=== PATIENT | male | born 1945 | race African-American/Black ===

== ENCOUNTER 2018-10-17 03:04 | Inpatient (IN) | payer MEDICARE, BC ==
[2018-10-17 03:52] LABS: % EOSINOPHILS 0.3 % (0.0-5.0); % LYMPHOCYTES 22.3 % (20.0-50.0); % MONOCYTES 3.5 % (2.0-10.0); % NEUTROPHILS 73.9 % (40.0-80.0); HEMATOCRIT 43.4 % (41.0-60); HEMOGLOBIN 13.2 gm/dL (12-16); LYMPHOCYTE ABSOLUTE 3.1 Th/cmm (1.5-3.0); MEAN CELL VOLUME 75.1 fl (80-99); MEAN CORPUSCULAR HEMOGLOBIN 22.9 pg (27.0-31.0); MEAN CORPUSCULAR HGB CONC 30.5 pg (28.0-36.0); MEAN PLATELET VOLUME 9.1 fl; MONOCYTE ABSOLUTE 0.5 Th/cmm (0.3-1.0); NEUTROPHILE ABSOLUTE 10.1 Th/cmm (1.8-8.0); PLATELET COUNT 309 Th/cmm (150-400); RED BLOOD COUNT 5.77 Mil/cmm (3.80-5.80); RED CELL DISTRIBUTION WIDTH 18.8 % (11.5-20.0); WHITE BLOOD COUNT 13.7 Th/cmm (4.8-10.8)
[2018-10-17 04:08] LABS: ALB/GLOB RATIO 1.2 (1.0-1.8); ALBUMIN 4.6 gm/dL (4.2-5.5); ALKALINE PHOSPHATASE 70 U/L (34-104); BILIRUBIN,TOTAL 0.6 mg/dL (0.3-1.0); BUN - UREA NITROGEN 38 mg/dL (7-25); CALCIUM SERUM 9.3 mg/dL (8.6-10.3); CARBON DIOXIDE 26.5 mEq/L (21.0-31.0); CHLORIDE 98 mEq/L (98-107); GLUCOSE 123 mg/dL (70-105); POTASSIUM SERUM 3.5 mEq/L (3.5-5.1); SGOT 20 U/L (13-39); SGPT/ALT 14 U/L (7-52); SODIUM SERUM 145 mEq/L (136-145); TOTAL PROTEIN,SERUM 8.6 gm/dL (6.0-8.3)
[2018-10-17 04:12] LABS: CREATININE - SERUM 10.6 mg/dL (0.7-1.3)
[2018-10-17] MEDS ORDERED: Piperacillin Sodium/Tazobact 3.375 gm Vial IV ONE (04:14)
[2018-10-17 04:34] LABS: URINE SOURCE RANDOM
[2018-10-17 04:36] LABS: URINE BILIRUBIN SMALL (NEGATIVE); URINE BLOOD MODERATE (NEGATIVE); URINE GLUCOSE (UA) NEGATIVE (NEGATIVE); URINE KETONE 15 mg/dL (NEGATIVE); URINE LEUKOCYTE ESTERASE MODERATE (NEGATIVE); URINE MICROSCOPIC INDICATED? YES; URINE NITRATE NEGATIVE (NEGATIVE); URINE PH 5.5 (4.6 - 8.0); URINE PROTEIN >=300 mg/dL (NEGATIVE); URINE UROBILINOGEN 0.2 E.U./dL (0.2 - 1.0)
[2018-10-17 04:55] LABS: URINE CLARITY HAZY (CLEAR); URINE COLOR ORANGE; URINE WBC 50-100 /hpf (0-5)
[2018-10-17 04:56] LABS: URINE BACTERIA MODERATE /hpf (NONE SEEN); URINE EPITHELIAL CELLS FEW /lpf (FEW)
--- NOTE | 2018-10-17 05:44 | ED Physician Chart ---
ED Chief Complaint/HPI - Patient Information Date Seen:: 10/17/18 Time Seen:: 03:38 Chief Complaint:: Abnormal labs History of Present Illness:: 73 yo male with history of ESRD on HD (/) had cough productive and was treated with rocephin IM and azithromycin PO for 5 days. Pt was noted to have elevated WBC 11.4 and unwitnessed fall and vomited yesterday. CXR was negative. Pt was brought to ER for evaluation. On arrival, pt was A&O x1, not answering question. Allergies:: Allergies Allergy/AdvReac Type Severity Reaction Status Date / Time losartan [From Cozaar] Allergy Verified 10/17/18 03:14 NSAIDS (Non-Steroidal Allergy Verified 10/17/18 03:14 Anti-Inflamma potassium chloride Allergy Verified 10/17/18 03:14 Vitals:: Vital Signs - 8 hr 10/17/18 03:05 Temp 98.7 F HR 86 RR 17 BP 99/61 O2 Sat % 93 ED Review of Systems - Review of Systems General/Constitutional: No fever Skin: Skin lesions Head: No headache ENT: No nasal drainage Neck: No neck pain Cardio Vascular: No chest pain Pulmonary: SOB, Cough, Sputum GI: No nausea, No vomiting Musculoskeletal: Bone or joint pain Neurological: Weakness ED Past Medical History - Past Medical History Past Medical History: HTN, DM, CHF, Dyslipidemia, ESRD, Arthritis, Other ( DYSPHAGIA, MUSCLE WEAKNESS) Social History: Non Smoker, No Alcohol, No Drug Use Surgical History: other (Right arm AV fistula) Family Medical History - Family Member Mother History Unknown: Yes ED Physical Exam - Physical Examination General/Constitutional: Awake Head: Atraumatic Eyes: PERRL Skin: No ecchymosis ENMT: Nasal exam nl Neck: No nuchal rigidity Other Respiratory comments:: Rhonchi Cardio Vascular: RRR, No murmur, gallop, rubs, NL S1 S2 GI: Nondistended Extremities: Full ROM Other Neuro/Psych comments:: A&O x 1 ED Labs/Radiology/EKG Results - Lab Results Results: Laboratory Tests 10/17/18 10/17/18 10/17/18 03:45 03:45 03:45 WBC 13.7 H RBC 5.77 Hgb 13.2 Hct 43.4 MCV 75.1 L MCH 22.9 L MCHC Differential 30.5 RDW 18.8 Plt Count 309 MPV 9.1 Neutrophils % 73.9 Lymphocytes % 22.3 Monocytes % 3.5 Eosinophils % 0.3 Basophils % 0.0 Sodium 145 Potassium 3.5 Chloride 98 Carbon Dioxide 26.5 Anion Gap 24.0 H BUN 38 H Creatinine 10.6 H* Est GFR ( Amer) TNP Est GFR (Non-Af Amer) TNP BUN/Creatinine Ratio 3.6 Glucose 123 H Whole Bld Lactic Acid 2.73 H* Calcium 9.3 Total Bilirubin 0.6 AST 20 ALT 14 Alkaline Phosphatase 70 Total Protein 8.6 H Albumin 4.6 Globulin 4.0 Albumin/Globulin Ratio 1.2 Urine Source Urine Color Urine Clarity Urine pH Ur Specific [place] Urine Protein Urine Glucose (UA) Urine Ketones Urine Blood Urine Nitrate Urine Bilirubin Urine Urobilinogen Ur Leukocyte Esterase Urine RBC Urine WBC Ur Epithelial Cells Urine Bacteria 10/17/18 04:22 WBC RBC Hgb Hct MCV MCH MCHC Differential RDW Plt Count MPV Neutrophils % Lymphocytes % Monocytes % Eosinophils % Basophils % Sodium Potassium Chloride Carbon Dioxide Anion Gap BUN Creatinine Est GFR ( Amer) Est GFR (Non-Af Amer) BUN/Creatinine Ratio Glucose Whole Bld Lactic Acid Calcium Total Bilirubin AST ALT Alkaline Phosphatase Total Protein Albumin Globulin Albumin/Globulin Ratio Urine Source RANDOM Urine Color ORANGE Urine Clarity HAZY Urine pH 5.5 Ur Specific [place] >= 1.030 Urine Protein >=300 Urine Glucose (UA) NEGATIVE Urine Ketones 15 H Urine Blood MODERATE H Urine Nitrate NEGATIVE Urine Bilirubin SMALL H Urine Urobilinogen 0.2 Ur Leukocyte Esterase MODERATE H Urine RBC 2-5 H Urine WBC 50-100 H Ur Epithelial Cells FEW Urine Bacteria MODERATE H - Radiology Results Results: CXR: no focal consolidation ED Assessment - Assessment General Assessment: Sepsis with leukocytosis and elevated lactic acid Urinary tract infection Bronchitis ESRD on HD Assessment/Comments:: CBC, CMP, UA CXR, EKG Zosyn IV Admit for further evaluation and management ED Septic Shock - . Is Septic Shock (SBP<90, OR Lactate>4 mmol\L) present?: No - <6hrs of presentation: Vital Signs: Vital Signs - 8 hr 10/17/18 03:05 Temp 98.7 F HR 86 RR 17 BP 99/61 O2 Sat % 93 ED Reassessment (Disposition) - Reassessment Reassessment Condition:: Improved - Patient Disposition Discharge/Transfer:: Acute Care w/in this hosp Admitting Medical Physician:: Petar Lees
--- NOTE | 2018-10-17 09:38 | Diagnostic Imaging Report ---
CHEST X-RAY: AP view INDICATION: Congestion COMPARISON: None FINDINGS: Patient is rotated, limiting the examination. No focal consolidation or effusions or evidence of CHF. Heart size normal. Gas-filled bowel of the upper abdomen are noted. Degenerative changes of the spine are noted. IMPRESSION: Limited exam due to rotation. No focal consolidation or evidence of CHF Gas-filled loops of bowel along the upper abdomen. Underlying ileus cannot be excluded. Please correlate clinically.
[2018-10-17] MEDS: INSULIN LISPRO SLIDING SCALE 100 UNITS/ML UNIT SUBQ SCH ×3 (12:37→20:26)
[2018-10-17] MEDS ORDERED: Sodium Chloride 0.45% 1,000 ML IV SCH (13:00)
--- NOTE | 2018-10-17 14:37 | History & Physical ---
ADMIT DATE: 10/17/2018 CHIEF COMPLAINT: Coughing and fever, not feeling well. HISTORY OF PRESENT ILLNESS: This is a 71-year-old male with history of stroke, diabetes, end-stage renal disease, hypercholesterolemia, and seizure; admitted from nursing facility secondary to not feeling well. The patient with recent diagnosis of pneumonia, now comes in with fever and ___ urinary tract infection. The patient is admitted for further management. The patient is a poor historian. PAST MEDICAL HISTORY: As mentioned in history of present illness. PAST SURGICAL HISTORY: Status post AV shunt in the right upper extremity. ALLERGIES: LOSARTAN AND NSAIDS. MEDICATIONS: The patient is on sertraline, atorvastatin, calcium, famotidine, insulin sliding scale, Keppra, metoprolol, ____, and folic acid. FAMILY HISTORY: Noncontributory. SOCIAL HISTORY: Nonsmoker, avid drinker. No intravenous drug use. 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 with 5 children, one has . The patient has been in the [place] [facility] for [facility]. REVIEW OF SYSTEMS: GENERAL: Complains of not feeling well. HEENT: The patient with no blurred vision or pain. LUNGS: No chronic obstructive pulmonary disease or asthma. HEART: The patient with hypertension and diabetes. ABDOMEN: No nausea, vomiting, or abdominal pain. GENITOURINARY: The patient diagnosed with urinary tract infection. PSYCHIATRIC: ____ NEUROLOGIC: The patient with seizure and stroke. PHYSICAL EXAMINATION: VITAL SIGNS: Blood pressure 105/54, respiratory rate 16, pulse 71, temperature 97.4. GENERAL: An elderly male, appears chronically ill, ____. LUNGS: Equal breath sounds, few rhonchi. HEART: Regular rate and rhythm with systolic ejection murmur. ABDOMEN: Soft, globular. EXTREMITIES: Positive excoriation atrophy and decubitus ulcer. LABORATORY DATA: WBC 13, hemoglobin 13, and platelets 209. Sodium 131, potassium 3.5, BUN 38, creatinine 2.6. Lactic acid 2.7 and glucose 141. UA showed 100 wbc's and moderate bacteria, and moderate leukocytes. ASSESSMENT AND PLAN: Urinary tract infection, pneumonia, sepsis, generalized weakness, leukocytosis, lactic acidosis, history of stroke, diabetes, end-stage renal disease, hypercholesterolemia, seizure, malnutrition. Continue the patient on bronchodilator treatment. Continue on gentle IV hydration, IV antibiotic, vancomycin and Zosyn. Case discussed with the patient's son at the bedside. We will admit the patient to telemetry. JOB# [id number]
[2018-10-17 15:43] VITALS: BP 105/54
[2018-10-18 05:39] LABS: EOSINOPHILE ABSOLUTE 0.1 Th/cmm (0.1-0.4); LYMPHOCYTE ABSOLUTE 3.1 Th/cmm (1.5-3.0); MEAN CELL VOLUME 74.9 fl (80-99); MONOCYTE ABSOLUTE 0.8 Th/cmm (0.3-1.0)
[2018-10-18 05:54] LABS: % BASOPHILS 0.9 % (0.0-2.0); % EOSINOPHILS 0.7 % (0.0-5.0); % LYMPHOCYTES 29.9 % (20.0-50.0); % MONOCYTES 7.8 % (2.0-10.0); % NEUTROPHILS 60.7 % (40.0-80.0); BASOPHILE ABSOLUTE 0.1 Th/cumm (0-0.2); HEMATOCRIT 34.3 % (41.0-60); HEMOGLOBIN 10.7 gm/dL (12-16); MEAN CORPUSCULAR HEMOGLOBIN 23.4 pg (27.0-31.0); MEAN CORPUSCULAR HGB CONC 31.2 pg (28.0-36.0); MEAN PLATELET VOLUME 9.5 fl; NEUTROPHILE ABSOLUTE 6.3 Th/cmm (1.8-8.0); PLATELET COUNT 237 Th/cmm (150-400); RED BLOOD COUNT 4.58 Mil/cmm (3.80-5.80); RED CELL DISTRIBUTION WIDTH 18.9 % (11.5-20.0); WHITE BLOOD COUNT 10.4 Th/cmm (4.8-10.8)
[2018-10-18 06:16] LABS: ANION GAP 24.7 (7.0-16.0); BUN - UREA NITROGEN 45 mg/dL (7-25); CALCIUM SERUM 8.3 mg/dL (8.6-10.3); CARBON DIOXIDE 23.9 mEq/L (21.0-31.0); CHLORIDE 97 mEq/L (98-107); GLUCOSE 86 mg/dL (70-105); SODIUM SERUM 143 mEq/L (136-145)
[2018-10-18 06:24] LABS: POTASSIUM SERUM 2.6 mEq/L (3.5-5.1)
[2018-10-18 06:26] LABS: CREATININE - SERUM 12.4 mg/dL (0.7-1.3)
[2018-10-18] MEDS: INSULIN LISPRO SLIDING SCALE 100 UNITS/ML UNIT SUBQ SCH ×4 (06:50→20:40)
[2018-10-18] MEDS ORDERED: Potassium Chloride 40 MEQ, Lidocaine 1% 20mL Vial 25 MG in Sodium Chloride 0.9% 250 ML IV ONE (07:17)
--- NOTE | 2018-10-18 08:14 | Diagnostic Imaging Report ---
Portable chest x-ray History: Cough Allowing for portable technique the heart size is normal. No focal pulmonary parenchymal processes. No hilar or mediastinal abnormalities. Impression: No acute abnormalities.
[2018-10-18] MEDS: Vitamin B Complex w/Vitamin C Tab PO SCH ×2 (10:25→13:27)
[2018-10-18] MEDS: Calcium Carb/Vit D 500 mg/200 U Tab PO SCH ×2 (10:25→13:23)
--- NOTE | 2018-10-18 10:31 | Consultation ---
Consult Note - Consult Note Service Date: 10/18/18 Referring Physician: Petar Lees Consult Note: PHYSICIAN Consultation Note: Date of Admission: 10/17/18 Purpose of Consultation: Chief Complaint: History of Present Illness: [facility]OD [facility] Past Medical History: Diagnoses SEPSIS, UNSPECIFIED ORGANISM (10/17/18) PNEUMONIA, UNSPECIFIED ORGANISM (10/17/18) END STAGE RENAL DISEASE (10/17/18) WEAKNESS (10/17/18) DEPENDENCE ON RENAL DIALYSIS (10/17/18) Allergies Allergy/AdvReac Type Severity Reaction Status Date / Time losartan [From Cozaar] Allergy Verified 10/17/18 03:14 NSAIDS (Non-Steroidal Allergy Verified 10/17/18 03:14 Anti-Inflamma potassium chloride Allergy Verified 10/17/18 03:14 Vital Signs Temp 98.4 F 10/18/18 04:00 Pulse 78 10/18/18 04:00 Resp 18 10/18/18 06:00 BP 110/60 10/18/18 04:00 Pulse Ox 98 10/18/18 04:00 Intake & Output 10/17/18 10/18/18 10/18/18 18:59 06:59 18:59 Intake Total 120 100 712.667 Balance 120 100 712.667 Weight (lbs) 58.513 kg 58.513 kg Intake: Intake, IV Amount 100 100 712.667 Piperacillin Sodium/ 100 100 100 Tazobact 4.5 gm In Sodium Chloride 0.9% 100 ml @ 100 mls/hr IV Q8HR [facility] Rx #:[id number] Sodium Chloride 0.45% 1, 612.667 000 ml @ 40 mls/hr IV . Q24H [facility] Rx#:[id number] Oral 20 Other: # Voids 1 1 # Bowel Movements 0 1 Stool Characteristics Soft Soft Brown Weight Source Bedscale Bedscale Laboratory Results - last 24 hr 10/17/18 10/17/18 10/17/18 10:06 11:50 17:12 WBC RBC Hgb Hct MCV MCH MCHC Differential RDW Plt Count MPV Neutrophils % Lymphocytes % Monocytes % Eosinophils % Basophils % Sodium Potassium Chloride Carbon Dioxide Anion Gap BUN Creatinine Est GFR ( Amer) Est GFR (Non-Af Amer) BUN/Creatinine Ratio Glucose POC Glucose 105 141 H 164 H Calcium Ammonia B-Natriuretic Peptide TSH Random Vancomycin 10/17/18 10/18/18 10/18/18 20:05 05:00 05:00 WBC RBC Hgb Hct MCV MCH MCHC Differential RDW Plt Count MPV Neutrophils % Lymphocytes % Monocytes % Eosinophils % Basophils % Sodium 143 Potassium 2.6 L* Chloride 97 L Carbon Dioxide 23.9 Anion Gap 24.7 H BUN 45 H Creatinine 12.4 H* Est GFR ( Amer) TNP Est GFR (Non-Af Amer) TNP BUN/Creatinine Ratio 3.6 Glucose 86 POC Glucose 82 Calcium 8.3 L Ammonia B-Natriuretic Peptide TSH Random Vancomycin 16.4 10/18/18 10/18/18 10/18/18 05:00 05:00 05:00 WBC 10.4 RBC 4.58 Hgb 10.7 L Hct 34.3 L MCV 74.9 L MCH 23.4 L MCHC Differential 31.2 RDW 18.9 Plt Count 237 MPV 9.5 Neutrophils % 60.7 Lymphocytes % 29.9 Monocytes % 7.8 Eosinophils % 0.7 Basophils % 0.9 Sodium Potassium Chloride Carbon Dioxide Anion Gap BUN Creatinine Est GFR ( Amer) Est GFR (Non-Af Amer) BUN/Creatinine Ratio Glucose POC Glucose Calcium Ammonia 52 B-Natriuretic Peptide 26.1 TSH 0.99 Random Vancomycin 10/18/18 06:48 WBC RBC Hgb Hct MCV MCH MCHC Differential RDW Plt Count MPV Neutrophils % Lymphocytes % Monocytes % Eosinophils % Basophils % Sodium Potassium Chloride Carbon Dioxide Anion Gap BUN Creatinine Est GFR ( Amer) Est GFR (Non-Af Amer) BUN/Creatinine Ratio Glucose POC Glucose 84 Calcium Ammonia B-Natriuretic Peptide TSH Random Vancomycin Home Medication Medication Instructions Recorded Type Atorvastatin Calcium [Lipitor] 40 mg PO HS 10/17/18 History Calcium Carbonate/Vitamin D3 1 each PO DAILY 10/17/18 History [Calcium 600 + Vit D 400 Softgl] Famotidine [Pepcid] 20 mg PO DAILY 10/17/18 History Insulin Human Regular [NovoLIN R] See Protocol SUBQ ACHS 10/17/18 History Levetiracetam [Keppra] 500 mg PO DAILY 10/17/18 History Metoprolol Tartrate 25 mg PO BID 10/17/18 History Sertraline [Zoloft] 75 mg PO DAILY 10/17/18 History Sodium Phos / Potassium Phos 164 mg PO DAILY 10/17/18 History [Neutra-Phos] Vit B Comp No.3/Folic/C/Biotin 1 tab PO DAILY 10/17/18 History [Nephro-Lynnette Rx Tablet] Current Medications Generic Name Dose Route Start Last Admin Trade Name Freq PRN Reason Stop Dose Admin Atorvastatin Calcium 40 mg 10/17/18 21:00 10/17/18 20:34 Lipitor PO 12/16/18 20:59 40 mg HS [facility] Administration Calcium/Vitamin D 1 tab 10/18/18 09:00 Oscal W/Vitamin D PO 12/17/18 08:59 DAILY [facility] Famotidine 20 mg 10/18/18 09:00 Pepcid PO 12/17/18 08:59 DAILY [facility] Piperacillin Sod/Tazobactam 100 mls @ 100 mls/hr 10/17/18 13:00 10/18/18 07: 43 Sod 4.5 gm/ Sodium Chloride IV 12/16/18 12:59 Infused Q8HR [facility] Infusion Sodium Chloride 1,000 mls @ 40 mls/hr 10/17/18 13:00 10/18/18 07:43 Nacl 0.45% IV 12/16/18 12:59 40 mls/hr .Q24H [facility] Infusion Potassium Chloride 40 meq/ 272.5 mls @ 68 mls/hr 10/18/18 07:17 Lidocaine HCl 25 mg/ Sodium IV 10/18/18 11:17 Chloride X1 ONE Vancomycin HCl 1 gm/ Sodium 250 mls @ 165 mls/hr 10/18/18 14:00 Chloride IV 10/18/18 15:30 1400 ONE Insulin Human Lispro 0 units 10/17/18 11:30 10/18/18 06:50 Humalog Insulin Sliding Scale SUBQ 12/16/18 11:29 Not Given ACHS [facility] Protocol Levetiracetam 500 mg 10/18/18 09:00 Keppra PO 12/17/18 08:59 DAILY [facility] Metoprolol Tartrate 25 mg 10/17/18 17:00 10/17/18 16:28 Lopressor PO 12/16/18 16:59 Not Given BID [facility] Miscellaneous 1 ea 10/17/18 09:15 Vancomycin Iv Per Pharmacy 12/16/18 09:14 PRN [facility] Ondansetron HCl 4 mg 10/17/18 09:12 Zofran IV 12/16/18 09:11 Q8H PRN Nausea / Vomiting Potassium Phos/Sodium Phos 0.164 gm 10/18/18 09:00 Neutra-Phos PO 12/17/18 08:59 DAILY [facility] Vitamin B Complex/Vit C/Folic Acid 1 tab 10/18/18 09:00 Vitamin B Complex W/Vitamin C PO 12/17/18 08:59 DAILY [facility] Review of Systems: A 12 point ROS was reviewed with the pertinent positive and negatives noted in the HPI. Social History Smoking Status Never smoker Family Medical History Family Medical History Start: 10/17/18 08: 12 Freq: ONCE Status: Active Protocol: Document 10/17/18 08:12 HUNG (Rec: 10/17/18 10:30 HUNG [id number]) Family Medical History Mother History Unknown Yes Physical Exam: General: sleeping HEENT: juains Neck: supple Cardio: s1s2 Respiratory: few rhonchi Abdominal: soft Extremities: no edema Neurological: confused Assessment: sepsis pneumonia ALOC ESRD Plan: plan for iv antibiotics plan for HD today Signed, Angelito Winkler M.D. [phone]
[2018-10-18] MEDS: Sodium Phos / Potassium Phos 1.25 GM PACK PO SCH ×2 (10:34→13:27)
--- NOTE | 2018-10-18 15:25 | Internal Medicine Prog Note ---
Internal Medicine Subjective - Subjective Patient seen and examined:: with staff, chart reviewed Patient is:: asleep, verbal, interactive, in bed, confused Patient Complaints of:: congestion Per staff patient has:: no adverse event, no episodes of fall, poor appetite, tolerating meds Internal Medicine Objective - Results Result Diagrams: 10/18/18 05:00 10/18/18 05:00 Recent Labs: Laboratory Last Values WBC 10.4 Th/cmm (4.8-10.8) 10/18/18 05:00 RBC 4.58 Mil/cmm (3.80-5.80) 10/18/18 05:00 Hgb 10.7 gm/dL (12-16) L 10/18/18 05:00 Hct 34.3 % (41.0-60) L 10/18/18 05:00 MCV 74.9 fl (80-99) L 10/18/18 05:00 MCH 23.4 pg (27.0-31.0) L 10/18/18 05:00 MCHC Differential 31.2 pg (28.0-36.0) 10/18/18 05:00 RDW 18.9 % (11.5-20.0) 10/18/18 05:00 Plt Count 237 Th/cmm (150-400) 10/18/18 05:00 MPV 9.5 fl 10/18/18 05:00 Neutrophils % 60.7 % (40.0-80.0) 10/18/18 05:00 Lymphocytes % 29.9 % (20.0-50.0) 10/18/18 05:00 Monocytes % 7.8 % (2.0-10.0) 10/18/18 05:00 Eosinophils % 0.7 % (0.0-5.0) 10/18/18 05:00 Basophils % 0.9 % (0.0-2.0) 10/18/18 05:00 Sodium 143 mEq/L (136-145) 10/18/18 05:00 Potassium 2.6 mEq/L (3.5-5.1) L* 10/18/18 05:00 Chloride 97 mEq/L (98-107) L 10/18/18 05:00 Carbon Dioxide 23.9 mEq/L (21.0-31.0) 10/18/18 05:00 Anion Gap 24.7 (7.0-16.0) H 10/18/18 05:00 BUN 45 mg/dL (7-25) H 10/18/18 05:00 Creatinine 12.4 mg/dL (0.7-1.3) H* 10/18/18 05:00 Est GFR ( Amer) TNP 10/18/18 05:00 Est GFR (Non-Af Amer) TNP 10/18/18 05:00 BUN/Creatinine Ratio 3.6 10/18/18 05:00 Glucose 86 mg/dL (70-105) 10/18/18 05:00 POC Glucose 81 MG/DL (70 - 105) 10/18/18 13:33 Whole Bld Lactic Acid 1.50 mmol/L (0.60-1.99) 10/17/18 06:25 Calcium 8.3 mg/dL (8.6-10.3) L 10/18/18 05:00 Total Bilirubin 0.6 mg/dL (0.3-1.0) 10/17/18 03:45 AST 20 U/L (13-39) 10/17/18 03:45 ALT 14 U/L (7-52) 10/17/18 03:45 Alkaline Phosphatase 70 U/L (34-104) 10/17/18 03:45 Ammonia 52 umol/L (16-53) 10/18/18 05:00 B-Natriuretic Peptide 26.1 pg/mL (5.0-100.0) 10/18/18 05:00 Total Protein 8.6 gm/dL (6.0-8.3) H 10/17/18 03:45 Albumin 4.6 gm/dL (4.2-5.5) 10/17/18 03:45 Globulin 4.0 gm/dL 10/17/18 03:45 Albumin/Globulin Ratio 1.2 (1.0-1.8) 10/17/18 03:45 TSH 0.99 uIU/ml (0.34-5.60) 10/18/18 05:00 Urine Source RANDOM 10/17/18 04:22 Urine Color ORANGE 10/17/18 04:22 Urine Clarity HAZY (CLEAR) 10/17/18 04:22 Urine pH 5.5 (4.6 - 8.0) 10/17/18 04:22 Ur Specific [place] >= 1.030 (1.005-1.030) 10/17/18 04:22 Urine Protein >=300 mg/dL (NEGATIVE) 10/17/18 04:22 Urine Glucose (UA) NEGATIVE mg/dL (NEGATIVE) 10/17/18 04:22 Urine Ketones 15 mg/dL (NEGATIVE) H 10/17/18 04:22 Urine Blood MODERATE (NEGATIVE) H 10/17/18 04:22 Urine Nitrate NEGATIVE (NEGATIVE) 10/17/18 04:22 Urine Bilirubin SMALL (NEGATIVE) H 10/17/18 04:22 Urine Urobilinogen 0.2 E.U./dL (0.2 - 1.0) 10/17/18 04:22 Ur Leukocyte Esterase MODERATE (NEGATIVE) H 10/17/18 04:22 Urine RBC 2-5 /hpf (0-5) H 10/17/18 04:22 Urine WBC 50-100 /hpf (0-5) H 10/17/18 04:22 Ur Epithelial Cells FEW /lpf (FEW) 10/17/18 04:22 Urine Bacteria MODERATE /hpf (NONE SEEN) H 10/17/18 04:22 Random Vancomycin 16.4 ug/mL (5.0-40.0) 10/18/18 05:00 - Physical Exam Vitals and I&O: Vital Signs Temp 97.6 F 10/18/18 12:00 Pulse 60 10/18/18 12:00 Resp 18 10/18/18 12:00 BP 109/62 10/18/18 12:00 Pulse Ox 100 10/18/18 12:00 Intake & Output 10/17/18 10/18/18 10/18/18 18:59 06:59 18:59 Intake Total 120 100 712.667 Balance 120 100 712.667 Weight (lbs) 58.513 kg 58.513 kg Intake: Intake, IV Amount 100 100 712.667 Piperacillin Sodium/ 100 100 100 Tazobact 4.5 gm In Sodium Chloride 0.9% 100 ml @ 100 mls/hr IV Q8HR [facility] Rx #:[id number] Sodium Chloride 0.45% 1, 612.667 000 ml @ 40 mls/hr IV . Q24H [facility] Rx#:[id number] Oral 20 Other: # Voids 1 1 # Bowel Movements 0 1 Stool Characteristics Soft Soft Soft Brown Brown Weight Source Bedscale Bedscale Active Medications: Current Medications Atorvastatin Calcium (Lipitor) 40 mg PO HS [facility] Stop: 12/16/18 20:59 Last Admin: 10/17/18 20:34 Dose: 40 mg Calcium/Vitamin D (Oscal W/Vitamin D) 1 tab PO DAILY [facility] Stop: 12/17/18 08:59 Last Admin: 10/18/18 13:23 Dose: Not Given Famotidine (Pepcid) 20 mg PO DAILY [facility] Stop: 12/17/18 08:59 Last Admin: 10/18/18 13:27 Dose: Not Given Piperacillin Sod/Tazobactam (Sod 4.5 gm/ Sodium Chloride) 100 mls @ 100 mls/hr IV Q8HR [facility] Stop: 12/16/18 12:59 Last Admin: 10/18/18 14:05 Dose: 100 mls/hr Sodium Chloride (Nacl 0.45%) 1,000 mls @ 40 mls/hr IV .Q24H [facility] Stop: 12/16/18 12:59 Last Infusion: 10/18/18 07:43 Dose: 40 mls/hr Vancomycin HCl 1 gm/ Sodium (Chloride) 250 mls @ 165 mls/hr IV 1400 ONE Stop: 10/18/18 15:30 Last Admin: 10/18/18 15:11 Dose: 165 mls/hr Insulin Human Lispro (Humalog Insulin Sliding Scale) 0 units SUBQ ACHS [facility]; Protocol Stop: 12/16/18 11:29 Last Admin: 10/18/18 14:03 Dose: Not Given Levetiracetam (Keppra) 500 mg PO DAILY [facility] Stop: 12/17/18 08:59 Last Admin: 10/18/18 13:27 Dose: Not Given Metoprolol Tartrate (Lopressor) 25 mg PO BID [facility] Stop: 12/16/18 16:59 Last Admin: 10/18/18 10:27 Dose: 25 mg Miscellaneous (Vancomycin Iv Per Pharmacy) 1 ea MC PRN [facility] Stop: 12/16/18 09:14 Ondansetron HCl (Zofran) 4 mg IV Q8H PRN PRN Reason: Nausea / Vomiting Stop: 12/16/18 09:11 Potassium Phos/Sodium Phos (Neutra-Phos) 0.164 gm PO DAILY [facility] Stop: 12/17/18 08:59 Last Admin: 10/18/18 13:27 Dose: Not Given Vitamin B Complex/Vit C/Folic Acid (Vitamin B Complex W/Vitamin C) 1 tab PO DAILY [facility] Stop: 12/17/18 08:59 Last Admin: 10/18/18 13:27 Dose: Not Given General: lethargic, bilateral temporal wasting HEENT: NC/AT, PERRLA, thinning hair, poor dentition Neck: Supple, No JVD Lungs: congested, rales, ronchi Cardiovascular: RRR, Normal S1, Normal S2, with murmur Abdomen: soft, thin, non-distended, positive bowel sound Extremities: excoriation, contracture Internal Medicine Assmt/Plan - Assessment Assessment: ASSESSMENT AND PLAN: Urinary tract infection, pneumonia, sepsis, generalized weakness, leukocytosis, lactic acidosis, history of stroke, diabetes, end-stage renal disease, hypercholesterolemia, seizure, malnutrition. - Plan Plan: PLAN: Continue the patient on bronchodilator treatment. Continue on gentle IV hydration, IV antibiotic, vancomycin and Zosyn. Case discussed with the patient's son at the bedside. We will admit the patient to telemetry.
[2018-10-18] MEDS: D5-0.45NS 1,000 ML IV SCH (18:46)
[2018-10-19 06:20] LABS: % BASOPHILS 0.4 % (0.0-2.0); % EOSINOPHILS 0.7 % (0.0-5.0); % LYMPHOCYTES 22.6 % (20.0-50.0); % MONOCYTES 6.7 % (2.0-10.0); % NEUTROPHILS 69.6 % (40.0-80.0); EOSINOPHILE ABSOLUTE 0.1 Th/cmm (0.1-0.4); HEMATOCRIT 28.5 % (41.0-60); HEMOGLOBIN 9.1 gm/dL (12-16); LYMPHOCYTE ABSOLUTE 2.1 Th/cmm (1.5-3.0); MEAN CELL VOLUME 73.7 fl (80-99); MEAN CORPUSCULAR HEMOGLOBIN 23.4 pg (27.0-31.0); MEAN CORPUSCULAR HGB CONC 31.8 pg (28.0-36.0); MEAN PLATELET VOLUME 9.8 fl; MONOCYTE ABSOLUTE 0.6 Th/cmm (0.3-1.0); NEUTROPHILE ABSOLUTE 6.3 Th/cmm (1.8-8.0); PLATELET COUNT 176 Th/cmm (150-400); RED BLOOD COUNT 3.86 Mil/cmm (3.80-5.80); WHITE BLOOD COUNT 9.1 Th/cmm (4.8-10.8)
[2018-10-19] MEDS: INSULIN LISPRO SLIDING SCALE 100 UNITS/ML UNIT SUBQ SCH ×4 (06:37→22:34)
[2018-10-19 06:45] LABS: ANION GAP 15.6 (7.0-16.0); BUN - UREA NITROGEN 20 mg/dL (7-25); CALCIUM SERUM 7.6 mg/dL (8.6-10.3); CARBON DIOXIDE 28.8 mEq/L (21.0-31.0); CHLORIDE 97 mEq/L (98-107); GLUCOSE 99 mg/dL (70-105); SODIUM SERUM 139 mEq/L (136-145)
[2018-10-19 07:13] LABS: CREATININE - SERUM 6.8 mg/dL (0.7-1.3); POTASSIUM SERUM 2.4 mEq/L (3.5-5.1)
[2018-10-19 08:07] LABS: FOLIC ACID >20.0 ng/mL (>3.0)
[2018-10-19] MEDS ORDERED: POTASSIUM CHLORIDE IV ONE (10:45)
[2018-10-19] MEDS ORDERED: SODIUM CHLORIDE 0.9% IV ONE (10:45)
[2018-10-19] MEDS: Calcium Carb/Vit D 500 mg/200 U Tab PO SCH (11:48)
[2018-10-19] MEDS: Vitamin B Complex w/Vitamin C Tab PO SCH (11:50)
--- NOTE | 2018-10-19 11:59 | General Progress Note ---
Subjective - Review of Systems Service Date: 10/19/18 Events since last encounter: pt in bed no distress pending swallow evaluation Subjective: pt in bed Objective - Results Result Diagrams: 10/19/18 05:50 10/19/18 05:50 Recent Labs: Laboratory Last Values WBC 9.1 Th/cmm (4.8-10.8) 10/19/18 05:50 RBC 3.86 Mil/cmm (3.80-5.80) 10/19/18 05:50 Hgb 9.1 gm/dL (12-16) L 10/19/18 05:50 Hct 28.5 % (41.0-60) L 10/19/18 05:50 MCV 73.7 fl (80-99) L 10/19/18 05:50 MCH 23.4 pg (27.0-31.0) L 10/19/18 05:50 MCHC Differential 31.8 pg (28.0-36.0) 10/19/18 05:50 RDW 19.0 % (11.5-20.0) 10/19/18 05:50 Plt Count 176 Th/cmm (150-400) 10/19/18 05:50 MPV 9.8 fl 10/19/18 05:50 Neutrophils % 69.6 % (40.0-80.0) 10/19/18 05:50 Lymphocytes % 22.6 % (20.0-50.0) 10/19/18 05:50 Monocytes % 6.7 % (2.0-10.0) 10/19/18 05:50 Eosinophils % 0.7 % (0.0-5.0) 10/19/18 05:50 Basophils % 0.4 % (0.0-2.0) 10/19/18 05:50 Sodium 139 mEq/L (136-145) 10/19/18 05:50 Potassium 2.4 mEq/L (3.5-5.1) L* 10/19/18 05:50 Chloride 97 mEq/L (98-107) L 10/19/18 05:50 Carbon Dioxide 28.8 mEq/L (21.0-31.0) 10/19/18 05:50 Anion Gap 15.6 (7.0-16.0) 10/19/18 05:50 BUN 20 mg/dL (7-25) 10/19/18 05:50 Creatinine 6.8 mg/dL (0.7-1.3) H* 10/19/18 05:50 Est GFR ( Amer) TNP 10/19/18 05:50 Est GFR (Non-Af Amer) TNP 10/19/18 05:50 BUN/Creatinine Ratio 2.9 10/19/18 05:50 Glucose 99 mg/dL (70-105) 10/19/18 05:50 POC Glucose 96 MG/DL (70 - 105) 10/19/18 11:30 Whole Bld Lactic Acid 1.50 mmol/L (0.60-1.99) 10/17/18 06:25 Calcium 7.6 mg/dL (8.6-10.3) L 10/19/18 05:50 Total Bilirubin 0.6 mg/dL (0.3-1.0) 10/17/18 03:45 AST 20 U/L (13-39) 10/17/18 03:45 ALT 14 U/L (7-52) 10/17/18 03:45 Alkaline Phosphatase 70 U/L (34-104) 10/17/18 03:45 Ammonia 42 umol/L (16-53) 10/19/18 05:50 B-Natriuretic Peptide 70.5 pg/mL (5.0-100.0) 10/19/18 05:50 Total Protein 8.6 gm/dL (6.0-8.3) H 10/17/18 03:45 Albumin 4.6 gm/dL (4.2-5.5) 10/17/18 03:45 Globulin 4.0 gm/dL 10/17/18 03:45 Albumin/Globulin Ratio 1.2 (1.0-1.8) 10/17/18 03:45 Vitamin B12 >1999 pg/mL (232-1245) H 10/18/18 05:00 Folic Acid >20.0 ng/mL (>3.0) 10/18/18 05:00 TSH 0.99 uIU/ml (0.34-5.60) 10/18/18 05:00 Urine Source RANDOM 10/17/18 04:22 Urine Color ORANGE 10/17/18 04:22 Urine Clarity HAZY (CLEAR) 10/17/18 04:22 Urine pH 5.5 (4.6 - 8.0) 10/17/18 04:22 Ur Specific [place] >= 1.030 (1.005-1.030) 10/17/18 04:22 Urine Protein >=300 mg/dL (NEGATIVE) 10/17/18 04:22 Urine Glucose (UA) NEGATIVE mg/dL (NEGATIVE) 10/17/18 04:22 Urine Ketones 15 mg/dL (NEGATIVE) H 10/17/18 04:22 Urine Blood MODERATE (NEGATIVE) H 10/17/18 04:22 Urine Nitrate NEGATIVE (NEGATIVE) 10/17/18 04:22 Urine Bilirubin SMALL (NEGATIVE) H 10/17/18 04:22 Urine Urobilinogen 0.2 E.U./dL (0.2 - 1.0) 10/17/18 04:22 Ur Leukocyte Esterase MODERATE (NEGATIVE) H 10/17/18 04:22 Urine RBC 2-5 /hpf (0-5) H 10/17/18 04:22 Urine WBC 50-100 /hpf (0-5) H 10/17/18 04:22 Ur Epithelial Cells FEW /lpf (FEW) 10/17/18 04:22 Urine Bacteria MODERATE /hpf (NONE SEEN) H 10/17/18 04:22 Random Vancomycin 20.7 ug/mL (5.0-40.0) 10/19/18 05:50 - Physical Exam Vitals and I&O: Vital Signs Temp 97.9 F 10/19/18 07:44 Pulse 70 10/19/18 09:03 Resp 18 10/19/18 09:03 BP 106/40 10/19/18 07:44 Pulse Ox 97 10/19/18 09:03 Intake & Output 10/18/18 10/19/18 10/19/18 18:59 06:59 18:59 Intake Total 1012.667 100 Output Total 0 Balance 1012.667 100 Weight (lbs) 58.513 kg 58.513 kg Intake: Intake, IV Amount 812.667 100 Piperacillin Sodium/ 200 100 Tazobact 4.5 gm In Sodium Chloride 0.9% 100 ml @ 100 mls/hr IV Q8HR [facility] Rx #:[id number] Sodium Chloride 0.45% 1, 612.667 000 ml @ 40 mls/hr IV . Q24H [facility] Rx#:[id number] Oral 200 Output: Hemodialysis 0 Other: # Voids 2 0 # Bowel Movements 0 1 Stool Characteristics Soft Brown Weight Source Bedscale Bedscale Active Medications: Current Medications Atorvastatin Calcium (Lipitor) 40 mg PO HS [facility] Stop: 12/16/18 20:59 Last Admin: 10/18/18 20:40 Dose: Not Given Calcium/Vitamin D (Oscal W/Vitamin D) 1 tab PO DAILY [facility] Stop: 12/17/18 08:59 Last Admin: 10/19/18 11:48 Dose: Not Given Famotidine (Pepcid) 20 mg PO DAILY [facility] Stop: 12/17/18 08:59 Last Admin: 10/19/18 11:49 Dose: Not Given Piperacillin Sod/Tazobactam (Sod 4.5 gm/ Sodium Chloride) 100 mls @ 100 mls/hr IV Q8HR [facility] Stop: 12/16/18 12:59 Last Admin: 10/19/18 05:18 Dose: 100 mls/hr Dextrose/Sodium Chloride (D5-0.45ns) 1,000 mls @ 50 mls/hr IV .Q20H [facility] Stop: 12/17/18 17:29 Last Admin: 10/18/18 18:46 Dose: 50 mls/hr Vancomycin HCl 1 gm/ Sodium (Chloride) 250 mls @ 165 mls/hr IV ONCE ONE Stop: 10/20/18 17:30 Potassium Chloride 40 meq/ (Sodium Chloride) 270 mls @ 67.5 mls/hr IV ONCE ONE Stop: 10/19/18 15:29 Last Admin: 10/19/18 11:40 Dose: 67.5 mls/hr Insulin Human Lispro (Humalog Insulin Sliding Scale) 0 units SUBQ ACHS [facility]; Protocol Stop: 12/16/18 11:29 Last Admin: 10/19/18 11:39 Dose: Not Given Levetiracetam (Keppra) 500 mg PO DAILY [facility] Stop: 12/17/18 08:59 Last Admin: 10/19/18 11:49 Dose: Not Given Metoprolol Tartrate (Lopressor) 25 mg PO BID [facility] Stop: 12/16/18 16:59 Last Admin: 10/19/18 11:50 Dose: Not Given Miscellaneous (Vancomycin Iv Per Pharmacy) 1 ea PRN [facility] Stop: 12/16/18 09:14 Ondansetron HCl (Zofran) 4 mg IV Q8H PRN PRN Reason: Nausea / Vomiting Stop: 12/16/18 09:11 Potassium Phos/Sodium Phos (Neutra-Phos) 1.25 gm PO DAILY [facility] Stop: 12/17/18 08:59 Vitamin B Complex/Vit C/Folic Acid (Vitamin B Complex W/Vitamin C) 1 tab PO DAILY [facility] Stop: 12/17/18 08:59 Last Admin: 10/19/18 11:50 Dose: Not Given General: Other HEENT: PERRLA Neck: JVD Cardiovascular: Regular rate, Normal S1, Normal S2 Lungs: Clear to auscultation Abdomen: Bowel sounds, Soft Assessment/Plan - Assessment Assessment: sepsis ESRD HTN CVA encephalopathy - Plan Plan: continue IV abx continue HD support Nutritional Asmnt/Malnutr-PDOC - Dietary Evaluation Malnutrition Findings (Please click <Entered> for more info): Nutritional Asmnt/Malnutrition Start: 10/18/18 17: 31 Text: Status: Complete Freq: Protocol: Document 10/18/18 17:31 LCHENG (Rec: 10/18/18 17:43 [email or web address]) Nutritional Asmnt/Malnutrition Patient General Information Nutritional Screening High Risk Diagnosis sepsis Pertinent Medical Hx/Surgical Hx HTN, DM, CHF, dyslipidemia, ESRD, arthritis, dysphagia, muscle weakness, right arm av fistula. Subjective Information Pt seen sleeping in bed at time of visit. Per EMR, PO intake 25-50% since admitted. Pt is on dialysis noted. Current Diet Order/ Nutrition Support renal pureed, ESTHER Pertinent Medications oscal w/vit D, D5-0.45ns, pepcid, humalog, piperacillin, nacl 0.45%, vit B complex w/ vit C Pertinent Labs 10/18 K 2.6, BUN 45, Cr 12.4, Ca 8.3 Nutritional Hx/Data Height 1.65 m Height (Calculated Centimeters) 165.1 Current Weight (lbs) 58.513 kg Weight (Calculated Kilograms) 58.5 Weight (Calculated Grams) 18691.4 [place] Body Weight 136 Body Mass Index (BMI) 21.4 Weight Status Approriate GI Symptoms GI Symptoms None Last BM 10/18 Difficult in: None Skin Integrity/Comment: intact Current %PO Poor (25-49%) Estimated Nutritional Goals BEE in Kcals: Using Current wt Calories/Kcals/Kg 30-35 Kcals Calculated 6062-6648 Protein: Using Current wt Protein g/k.2-1.4 Protein Calculated 70-82 Fluid: ml 1769-2064ml (1ml/kcal) Nutritional Problem 1. Problem Problem altered nutrition related labs Etiology renal dysfunction Signs/Symptoms: K 2.6, BUN 45, Cr 12.4, Ca 8.3 Intervention/Recommendation Comments 1. Continue with renal pureed ESTHER diet as ordered. Adjusted renal diet with 70g protein. Add Nepro BID for extra kcal and protein. 2. Monitor PO intake, wt, labs and skin integrity 3. F/U as high risk in 2-3 days Expected Outcomes/Goals Expected Outcomes/Goals 1. PO intake to meet at least 75% of nutritional needs. 2. Wt stability, skin to remain intact, labs to approach WNL.
--- NOTE | 2018-10-19 12:17 | Internal Medicine Prog Note ---
Internal Medicine Subjective - Subjective Patient seen and examined:: with staff, chart reviewed Patient is:: asleep, verbal, interactive, in bed, confused Patient Complaints of:: congestion Per staff patient has:: no adverse event, no episodes of fall, poor appetite, tolerating meds Internal Medicine Objective - Results Result Diagrams: 10/19/18 05:50 10/19/18 05:50 Recent Labs: Laboratory Last Values WBC 9.1 Th/cmm (4.8-10.8) 10/19/18 05:50 RBC 3.86 Mil/cmm (3.80-5.80) 10/19/18 05:50 Hgb 9.1 gm/dL (12-16) L 10/19/18 05:50 Hct 28.5 % (41.0-60) L 10/19/18 05:50 MCV 73.7 fl (80-99) L 10/19/18 05:50 MCH 23.4 pg (27.0-31.0) L 10/19/18 05:50 MCHC Differential 31.8 pg (28.0-36.0) 10/19/18 05:50 RDW 19.0 % (11.5-20.0) 10/19/18 05:50 Plt Count 176 Th/cmm (150-400) 10/19/18 05:50 MPV 9.8 fl 10/19/18 05:50 Neutrophils % 69.6 % (40.0-80.0) 10/19/18 05:50 Lymphocytes % 22.6 % (20.0-50.0) 10/19/18 05:50 Monocytes % 6.7 % (2.0-10.0) 10/19/18 05:50 Eosinophils % 0.7 % (0.0-5.0) 10/19/18 05:50 Basophils % 0.4 % (0.0-2.0) 10/19/18 05:50 Sodium 139 mEq/L (136-145) 10/19/18 05:50 Potassium 2.4 mEq/L (3.5-5.1) L* 10/19/18 05:50 Chloride 97 mEq/L (98-107) L 10/19/18 05:50 Carbon Dioxide 28.8 mEq/L (21.0-31.0) 10/19/18 05:50 Anion Gap 15.6 (7.0-16.0) 10/19/18 05:50 BUN 20 mg/dL (7-25) 10/19/18 05:50 Creatinine 6.8 mg/dL (0.7-1.3) H* 10/19/18 05:50 Est GFR ( Amer) TNP 10/19/18 05:50 Est GFR (Non-Af Amer) TNP 10/19/18 05:50 BUN/Creatinine Ratio 2.9 10/19/18 05:50 Glucose 99 mg/dL (70-105) 10/19/18 05:50 POC Glucose 96 MG/DL (70 - 105) 10/19/18 11:30 Whole Bld Lactic Acid 1.50 mmol/L (0.60-1.99) 10/17/18 06:25 Calcium 7.6 mg/dL (8.6-10.3) L 10/19/18 05:50 Total Bilirubin 0.6 mg/dL (0.3-1.0) 10/17/18 03:45 AST 20 U/L (13-39) 10/17/18 03:45 ALT 14 U/L (7-52) 10/17/18 03:45 Alkaline Phosphatase 70 U/L (34-104) 10/17/18 03:45 Ammonia 42 umol/L (16-53) 10/19/18 05:50 B-Natriuretic Peptide 70.5 pg/mL (5.0-100.0) 10/19/18 05:50 Total Protein 8.6 gm/dL (6.0-8.3) H 10/17/18 03:45 Albumin 4.6 gm/dL (4.2-5.5) 10/17/18 03:45 Globulin 4.0 gm/dL 10/17/18 03:45 Albumin/Globulin Ratio 1.2 (1.0-1.8) 10/17/18 03:45 Vitamin B12 >1999 pg/mL (232-1245) H 10/18/18 05:00 Folic Acid >20.0 ng/mL (>3.0) 10/18/18 05:00 TSH 0.99 uIU/ml (0.34-5.60) 10/18/18 05:00 Urine Source RANDOM 10/17/18 04:22 Urine Color ORANGE 10/17/18 04:22 Urine Clarity HAZY (CLEAR) 10/17/18 04:22 Urine pH 5.5 (4.6 - 8.0) 10/17/18 04:22 Ur Specific [place] >= 1.030 (1.005-1.030) 10/17/18 04:22 Urine Protein >=300 mg/dL (NEGATIVE) 10/17/18 04:22 Urine Glucose (UA) NEGATIVE mg/dL (NEGATIVE) 10/17/18 04:22 Urine Ketones 15 mg/dL (NEGATIVE) H 10/17/18 04:22 Urine Blood MODERATE (NEGATIVE) H 10/17/18 04:22 Urine Nitrate NEGATIVE (NEGATIVE) 10/17/18 04:22 Urine Bilirubin SMALL (NEGATIVE) H 10/17/18 04:22 Urine Urobilinogen 0.2 E.U./dL (0.2 - 1.0) 10/17/18 04:22 Ur Leukocyte Esterase MODERATE (NEGATIVE) H 10/17/18 04:22 Urine RBC 2-5 /hpf (0-5) H 10/17/18 04:22 Urine WBC 50-100 /hpf (0-5) H 10/17/18 04:22 Ur Epithelial Cells FEW /lpf (FEW) 10/17/18 04:22 Urine Bacteria MODERATE /hpf (NONE SEEN) H 10/17/18 04:22 Random Vancomycin 20.7 ug/mL (5.0-40.0) 10/19/18 05:50 - Physical Exam Vitals and I&O: Vital Signs Temp 97.9 F 10/19/18 07:44 Pulse 70 10/19/18 09:03 Resp 18 10/19/18 09:03 BP 106/40 10/19/18 07:44 Pulse Ox 97 10/19/18 09:03 Intake & Output 10/18/18 10/19/18 10/19/18 18:59 06:59 18:59 Intake Total 1012.667 100 Output Total 0 Balance 1012.667 100 Weight (lbs) 58.513 kg 58.513 kg Intake: Intake, IV Amount 812.667 100 Piperacillin Sodium/ 200 100 Tazobact 4.5 gm In Sodium Chloride 0.9% 100 ml @ 100 mls/hr IV Q8HR [facility] Rx #:[id number] Sodium Chloride 0.45% 1, 612.667 000 ml @ 40 mls/hr IV . Q24H [facility] Rx#:[id number] Oral 200 Output: Hemodialysis 0 Other: # Voids 2 0 # Bowel Movements 0 1 Stool Characteristics Soft Brown Weight Source Bedscale Bedscale Active Medications: Current Medications Atorvastatin Calcium (Lipitor) 40 mg PO HS [facility] Stop: 12/16/18 20:59 Last Admin: 10/18/18 20:40 Dose: Not Given Calcium/Vitamin D (Oscal W/Vitamin D) 1 tab PO DAILY [facility] Stop: 12/17/18 08:59 Last Admin: 10/19/18 11:48 Dose: Not Given Famotidine (Pepcid) 20 mg PO DAILY [facility] Stop: 12/17/18 08:59 Last Admin: 10/19/18 11:49 Dose: Not Given Piperacillin Sod/Tazobactam (Sod 4.5 gm/ Sodium Chloride) 100 mls @ 100 mls/hr IV Q8HR [facility] Stop: 12/16/18 12:59 Last Admin: 10/19/18 05:18 Dose: 100 mls/hr Dextrose/Sodium Chloride (D5-0.45ns) 1,000 mls @ 50 mls/hr IV .Q20H [facility] Stop: 12/17/18 17:29 Last Admin: 10/18/18 18:46 Dose: 50 mls/hr Vancomycin HCl 1 gm/ Sodium (Chloride) 250 mls @ 165 mls/hr IV ONCE ONE Stop: 10/20/18 17:30 Potassium Chloride 40 meq/ (Sodium Chloride) 270 mls @ 67.5 mls/hr IV ONCE ONE Stop: 10/19/18 15:29 Last Admin: 10/19/18 11:40 Dose: 67.5 mls/hr Insulin Human Lispro (Humalog Insulin Sliding Scale) 0 units SUBQ ACHS [facility]; Protocol Stop: 12/16/18 11:29 Last Admin: 10/19/18 11:39 Dose: Not Given Levetiracetam (Keppra) 500 mg PO DAILY [facility] Stop: 12/17/18 08:59 Last Admin: 10/19/18 11:49 Dose: Not Given Metoprolol Tartrate (Lopressor) 25 mg PO BID [facility] Stop: 12/16/18 16:59 Last Admin: 10/19/18 11:50 Dose: Not Given Miscellaneous (Vancomycin Iv Per Pharmacy) 1 ea [facility] PRN [facility] Stop: 12/16/18 09:14 Ondansetron HCl (Zofran) 4 mg IV Q8H PRN PRN Reason: Nausea / Vomiting Stop: 12/16/18 09:11 Potassium Phos/Sodium Phos (Neutra-Phos) 1.25 gm PO DAILY [facility] Stop: 12/17/18 08:59 Vitamin B Complex/Vit C/Folic Acid (Vitamin B Complex W/Vitamin C) 1 tab PO DAILY [facility] Stop: 12/17/18 08:59 Last Admin: 10/19/18 11:50 Dose: Not Given General: lethargic, bilateral temporal wasting HEENT: NC/AT, PERRLA, thinning hair, poor dentition Neck: Supple, No JVD Lungs: congested, rales, ronchi Cardiovascular: RRR, Normal S1, Normal S2, with murmur Abdomen: soft, thin, non-distended, positive bowel sound Extremities: excoriation, contracture Internal Medicine Assmt/Plan - Assessment Assessment: ASSESSMENT AND PLAN: Urinary tract infection, pneumonia, sepsis, generalized weakness, leukocytosis, lactic acidosis, history of stroke, diabetes, end-stage renal disease, hypercholesterolemia, seizure, malnutrition. - Plan Plan: PLAN: Continue the patient on bronchodilator treatment. Continue on gentle IV hydration, IV antibiotic, vancomycin and Zosyn. Case discussed with the patient's son at the bedside. We will admit the patient to telemetry. Nutritional Asmnt/Malnutr-PDOC - Dietary Evaluation Malnutrition Findings (Please click <Entered> for more info): Nutritional Asmnt/Malnutrition Start: 10/18/18 17: 31 Text: Status: Complete Freq: Protocol: Document 10/18/18 17:31 LCHENG (Rec: 10/18/18 17:43 [email or web address]) Nutritional Asmnt/Malnutrition Patient General Information Nutritional Screening High Risk Diagnosis sepsis Pertinent Medical Hx/Surgical Hx HTN, DM, CHF, dyslipidemia, ESRD, arthritis, dysphagia, muscle weakness, right arm av fistula. Subjective Information Pt seen sleeping in bed at time of visit. Per EMR, PO intake 25-50% since admitted. Pt is on dialysis noted. Current Diet Order/ Nutrition Support renal pureed, ESTHER Pertinent Medications oscal w/vit D, D5-0.45ns, pepcid, humalog, piperacillin, nacl 0.45%, vit B complex w/ vit C Pertinent Labs 10/18 K 2.6, BUN 45, Cr 12.4, Ca 8.3 Nutritional Hx/Data Height 1.65 m Height (Calculated Centimeters) 165.1 Current Weight (lbs) 58.513 kg Weight (Calculated Kilograms) 58.5 Weight (Calculated Grams) 44333.4 [place] Body Weight 136 Body Mass Index (BMI) 21.4 Weight Status Approriate GI Symptoms GI Symptoms None Last BM 10/18 Difficult in: None Skin Integrity/Comment: intact Current %PO Poor (25-49%) Estimated Nutritional Goals BEE in Kcals: Using Current wt Calories/Kcals/Kg 30-35 Kcals Calculated 3971-2155 Protein: Using Current wt Protein g/k.2-1.4 Protein Calculated 70-82 Fluid: ml 1770-2065ml (1ml/kcal) Nutritional Problem 1. Problem Problem altered nutrition related labs Etiology renal dysfunction Signs/Symptoms: K 2.6, BUN 45, Cr 12.4, Ca 8.3 Intervention/Recommendation Comments 1. Continue with renal pureed ESTHER diet as ordered. Adjusted renal diet with 70g protein. Add Nepro BID for extra kcal and protein. 2. Monitor PO intake, wt, labs and skin integrity 3. F/U as high risk in 2-3 days Expected Outcomes/Goals Expected Outcomes/Goals 1. PO intake to meet at least 75% of nutritional needs. 2. Wt stability, skin to remain intact, labs to approach WNL.
[2018-10-19] MEDS: D5-0.45NS 1,000 ML IV SCH (14:57)
[2018-10-20] MEDS: INSULIN LISPRO SLIDING SCALE 100 UNITS/ML UNIT SUBQ SCH ×2 (06:32→12:48)
[2018-10-20 06:43] LABS: ANION GAP 15.3 (7.0-16.0); BUN - UREA NITROGEN 21 mg/dL (7-25); CALCIUM SERUM 7.1 mg/dL (8.6-10.3); CARBON DIOXIDE 26.2 mEq/L (21.0-31.0); CHLORIDE 99 mEq/L (98-107); GLUCOSE 128 mg/dL (70-105); PHOSPHOROUS 3.2 mg/dL (2.5-5.0); SODIUM SERUM 138 mEq/L (136-145)
[2018-10-20 06:59] LABS: CREATININE - SERUM 8.2 mg/dL (0.7-1.3); POTASSIUM SERUM 2.5 mEq/L (3.5-5.1)
[2018-10-20] MEDS ORDERED: Sodium Phos / Potassium Phos 1.25 GM PACK PO SCH (09:00)
[2018-10-20] MEDS: Calcium Carb/Vit D 500 mg/200 U Tab PO SCH (10:36)
[2018-10-20] MEDS: Vitamin B Complex w/Vitamin C Tab PO SCH (10:37)
[2018-10-20 12:06] LABS: FOLIC ACID >20.0 ng/mL (>3.0)
--- NOTE | 2018-10-20 13:43 | General Progress Note ---
Subjective - Review of Systems Service Date: 10/20/18 Events since last encounter: No new events overnight. Refused HD today. Objective - Results Result Diagrams: 10/19/18 05:50 10/20/18 06:05 Recent Labs: Laboratory Last Values WBC 9.1 Th/cmm (4.8-10.8) 10/19/18 05:50 RBC 3.86 Mil/cmm (3.80-5.80) 10/19/18 05:50 Hgb 9.1 gm/dL (12-16) L 10/19/18 05:50 Hct 28.5 % (41.0-60) L 10/19/18 05:50 MCV 73.7 fl (80-99) L 10/19/18 05:50 MCH 23.4 pg (27.0-31.0) L 10/19/18 05:50 MCHC Differential 31.8 pg (28.0-36.0) 10/19/18 05:50 RDW 19.0 % (11.5-20.0) 10/19/18 05:50 Plt Count 176 Th/cmm (150-400) 10/19/18 05:50 MPV 9.8 fl 10/19/18 05:50 Neutrophils % 69.6 % (40.0-80.0) 10/19/18 05:50 Lymphocytes % 22.6 % (20.0-50.0) 10/19/18 05:50 Monocytes % 6.7 % (2.0-10.0) 10/19/18 05:50 Eosinophils % 0.7 % (0.0-5.0) 10/19/18 05:50 Basophils % 0.4 % (0.0-2.0) 10/19/18 05:50 Sodium 138 mEq/L (136-145) 10/20/18 06:05 Potassium 2.5 mEq/L (3.5-5.1) L* 10/20/18 06:05 Chloride 99 mEq/L (98-107) 10/20/18 06:05 Carbon Dioxide 26.2 mEq/L (21.0-31.0) 10/20/18 06:05 Anion Gap 15.3 (7.0-16.0) 10/20/18 06:05 BUN 21 mg/dL (7-25) 10/20/18 06:05 Creatinine 8.2 mg/dL (0.7-1.3) H* 10/20/18 06:05 Est GFR ( Amer) TNP 10/20/18 06:05 Est GFR (Non-Af Amer) TNP 10/20/18 06:05 BUN/Creatinine Ratio 2.6 10/20/18 06:05 Glucose 128 mg/dL (70-105) H 10/20/18 06:05 POC Glucose 124 MG/DL (70 - 105) H 10/20/18 12:10 Whole Bld Lactic Acid 1.50 mmol/L (0.60-1.99) 10/17/18 06:25 Calcium 7.1 mg/dL (8.6-10.3) L 10/20/18 06:05 Phosphorus 3.2 mg/dL (2.5-5.0) 10/20/18 06:05 Total Bilirubin 0.6 mg/dL (0.3-1.0) 10/17/18 03:45 AST 20 U/L (13-39) 10/17/18 03:45 ALT 14 U/L (7-52) 10/17/18 03:45 Alkaline Phosphatase 70 U/L (34-104) 10/17/18 03:45 Ammonia 42 umol/L (16-53) 10/19/18 05:50 B-Natriuretic Peptide 70.5 pg/mL (5.0-100.0) 10/19/18 05:50 Total Protein 8.6 gm/dL (6.0-8.3) H 10/17/18 03:45 Albumin 4.6 gm/dL (4.2-5.5) 10/17/18 03:45 Globulin 4.0 gm/dL 10/17/18 03:45 Albumin/Globulin Ratio 1.2 (1.0-1.8) 10/17/18 03:45 Vitamin B12 >1999 pg/mL (232-1245) H 10/19/18 05:50 Folic Acid >20.0 ng/mL (>3.0) 10/19/18 05:50 TSH 0.99 uIU/ml (0.34-5.60) 10/18/18 05:00 Urine Source RANDOM 10/17/18 04:22 Urine Color ORANGE 10/17/18 04:22 Urine Clarity HAZY (CLEAR) 10/17/18 04:22 Urine pH 5.5 (4.6 - 8.0) 10/17/18 04:22 Ur Specific [place] >= 1.030 (1.005-1.030) 10/17/18 04:22 Urine Protein >=300 mg/dL (NEGATIVE) 10/17/18 04:22 Urine Glucose (UA) NEGATIVE mg/dL (NEGATIVE) 10/17/18 04:22 Urine Ketones 15 mg/dL (NEGATIVE) H 10/17/18 04:22 Urine Blood MODERATE (NEGATIVE) H 10/17/18 04:22 Urine Nitrate NEGATIVE (NEGATIVE) 10/17/18 04:22 Urine Bilirubin SMALL (NEGATIVE) H 10/17/18 04:22 Urine Urobilinogen 0.2 E.U./dL (0.2 - 1.0) 10/17/18 04:22 Ur Leukocyte Esterase MODERATE (NEGATIVE) H 10/17/18 04:22 Urine RBC 2-5 /hpf (0-5) H 10/17/18 04:22 Urine WBC 50-100 /hpf (0-5) H 10/17/18 04:22 Ur Epithelial Cells FEW /lpf (FEW) 10/17/18 04:22 Urine Bacteria MODERATE /hpf (NONE SEEN) H 10/17/18 04:22 Random Vancomycin 20.7 ug/mL (5.0-40.0) 10/19/18 05:50 - Physical Exam Vitals and I&O: Vital Signs Temp 97.4 F 10/20/18 11:44 Pulse 61 10/20/18 11:44 Resp 18 10/20/18 11:44 BP 122/69 10/20/18 11:44 Pulse Ox 98 10/20/18 11:44 Intake & Output 10/19/18 10/20/18 10/20/18 18:59 06:59 18:59 Intake Total 1000 350 30 Output Total 100 Balance 1000 350 -70 Weight (lbs) 61.961 kg 63.412 kg Intake: Intake, IV Amount 1000 200 D5-0.45NS 1,000 ml @ 50 1000 mls/hr IV .Q20H [facility] Rx#: [id number] Piperacillin Sodium/ 200 Tazobact 4.5 gm In Sodium Chloride 0.9% 100 ml @ 100 mls/hr IV Q8HR [facility] Rx #:[id number] Oral 150 30 Output: Urine 100 Other: # Voids 2 # Bowel Movements 1 0 Weight Source Bedscale Bedscale Active Medications: Current Medications Atorvastatin Calcium (Lipitor) 40 mg PO HS [facility] Stop: 12/16/18 20:59 Last Admin: 10/19/18 22:34 Dose: Not Given Calcium/Vitamin D (Oscal W/Vitamin D) 1 tab PO DAILY [facility] Stop: 12/17/18 08:59 Last Admin: 10/20/18 10:36 Dose: Not Given Famotidine (Pepcid) 20 mg PO DAILY [facility] Stop: 12/17/18 08:59 Last Admin: 10/20/18 10:36 Dose: Not Given Piperacillin Sod/Tazobactam (Sod 4.5 gm/ Sodium Chloride) 100 mls @ 100 mls/hr IV Q8HR [facility] Stop: 12/16/18 12:59 Last Admin: 10/20/18 12:50 Dose: 100 mls/hr Dextrose/Sodium Chloride (D5-0.45ns) 1,000 mls @ 50 mls/hr IV .Q20H [facility] Stop: 12/17/18 17:29 Last Admin: 10/19/18 14:57 Dose: 50 mls/hr Vancomycin HCl 1 gm/ Sodium (Chloride) 250 mls @ 165 mls/hr IV ONCE ONE Stop: 10/20/18 17:30 Potassium Chloride (Potassium Chloride) 20 meq in 100 mls @ 50 mls/hr IV Q2H [facility] Stop: 10/20/18 16:59 Insulin Human Lispro (Humalog Insulin Sliding Scale) 0 units SUBQ ACHS [facility]; Protocol Stop: 12/16/18 11:29 Last Admin: 10/20/18 12:48 Dose: Not Given Levetiracetam (Keppra) 500 mg PO DAILY [facility] Stop: 12/17/18 08:59 Last Admin: 10/20/18 10:36 Dose: Not Given Metoprolol Tartrate (Lopressor) 25 mg PO BID [facility] Stop: 12/16/18 16:59 Last Admin: 10/20/18 10:36 Dose: Not Given Miscellaneous (Vancomycin Iv Per Pharmacy) 1 ea MC PRN [facility] Stop: 12/16/18 09:14 Ondansetron HCl (Zofran) 4 mg IV Q8H PRN PRN Reason: Nausea / Vomiting Stop: 12/16/18 09:11 Potassium Phos/Sodium Phos (Neutra-Phos) 1.25 gm PO DAILY [facility] Stop: 12/17/18 08:59 Last Admin: 10/20/18 10:36 Dose: Not Given Vitamin B Complex/Vit C/Folic Acid (Vitamin B Complex W/Vitamin C) 1 tab PO DAILY [facility] Stop: 12/17/18 08:59 Last Admin: 10/20/18 10:37 Dose: Not Given General: Other (anwers simple questions. ) HEENT: PERRLA Neck: JVD Cardiovascular: Regular rate, Normal S1, Normal S2 Lungs: Clear to auscultation Abdomen: Bowel sounds, Soft Extremities: Other (No edema) Assessment/Plan - Assessment Assessment: sepsis ESRD HTN CVA encephalopathy - Plan Plan: Continue HD as scheduled. Potassium supplement is ordered. Await transfer to [facility]. Nutritional Asmnt/Malnutr-PDOC - Dietary Evaluation Malnutrition Findings (Please click <Entered> for more info): Nutritional Asmnt/Malnutrition Start: 10/18/18 17: 31 Text: Status: Complete Freq: Protocol: Document 10/18/18 17:31 LCHENG (Rec: 10/18/18 17:43 [email or web address] [id number]) Nutritional Asmnt/Malnutrition Patient General Information Nutritional Screening High Risk Diagnosis sepsis Pertinent Medical Hx/Surgical Hx HTN, DM, CHF, dyslipidemia, ESRD, arthritis, dysphagia, muscle weakness, right arm av fistula. Subjective Information Pt seen sleeping in bed at time of visit. Per EMR, PO intake 25-50% since admitted. Pt is on dialysis noted. Current Diet Order/ Nutrition Support renal pureed, ESTHER Pertinent Medications oscal w/vit D, D5-0.45ns, pepcid, humalog, piperacillin, nacl 0.45%, vit B complex w/ vit C Pertinent Labs 10/18 K 2.6, BUN 45, Cr 12.4, Ca 8.3 Nutritional Hx/Data Height 1.65 m Height (Calculated Centimeters) 165.1 Current Weight (lbs) 58.513 kg Weight (Calculated Kilograms) 58.5 Weight (Calculated Grams) 98261.4 Elim Body Weight 136 Body Mass Index (BMI) 21.4 Weight Status Approriate GI Symptoms GI Symptoms None Last BM 10/18 Difficult in: None Skin Integrity/Comment: intact Current %PO Poor (25-49%) Estimated Nutritional Goals BEE in Kcals: Using Current wt Calories/Kcals/Kg 30-35 Kcals Calculated 0951-3657 Protein: Using Current wt Protein g/k.2-1.4 Protein Calculated 70-82 Fluid: ml 1770-2065ml (1ml/kcal) Nutritional Problem 1. Problem Problem altered nutrition related labs Etiology renal dysfunction Signs/Symptoms: K 2.6, BUN 45, Cr 12.4, Ca 8.3 Intervention/Recommendation Comments 1. Continue with renal pureed ESTHER diet as ordered. Adjusted renal diet with 70g protein. Add Nepro BID for extra kcal and protein. 2. Monitor PO intake, wt, labs and skin integrity 3. F/U as high risk in 2-3 days Expected Outcomes/Goals Expected Outcomes/Goals 1. PO intake to meet at least 75% of nutritional needs. 2. Wt stability, skin to remain intact, labs to approach WNL.
[2018-10-20] MEDS: KCL 20mEq/100mL Premix 20 MEQ/100 ML PIGGYBACK IV SCH ×2 (14:00→15:51)
[2018-10-20] MEDS ORDERED: Probiotic Screen MC PRN (14:29)
[2018-10-20] MEDS ORDERED: Lactobacillus Rhamnosus GG 15 Billion CFU CAP.SPRINK PO SCH (15:00)
--- NOTE | 2018-10-20 21:37 | Discharge Summary ---
DATE OF DISCHARGE: 10/20/2018 CHIEF COMPLAINT: Coughing and fever, not feeling well. FINAL DIAGNOSES: Pneumonia, UTI, sepsis, generalized weakness, leukocytosis, lactic acidosis, history of stroke, diabetes, end-stage renal disease, hypercholesterolemia, seizure, malnutrition, and dysphagia. HISTORY: This is a 73-year-old -[place] male with history of stroke, diabetes, end-stage renal disease, hypercholesterolemia, and seizure, admitted from nursing facility secondary to not feeling well. The patient was diagnosed with sepsis and admitted for further management. PHYSICAL EXAMINATION: VITAL SIGNS: Blood pressure 120/69, respirations 14, pulse 61, temperature 97.4. GENERAL: Elderly male, appears stated age. NECK: Supple. No mass. LUNGS: Equal breath sounds, few rhonchi. HEART: Regular rate and rhythm without systolic ejection murmur. ABDOMEN: Soft, globular. EXTREMITIES: Positive excoriation. NEUROLOGIC: Limited. PLAN OF TREATMENT: Continue oxygen, bronchodilator treatment, and IV antibiotic. The patient was referred to Dr. Winkler for renal. The patient was continued on hemodialysis, antiplatelet medication, IV antibiotic, vancomycin and Zosyn. The patient is not cleared for transfer back to nursing facility, has to be referred to long-term acute care. CONDITION ON DISCHARGE: Fair. DISCHARGE INSTRUCTIONS: Poor prognosis. DISCHARGE INSTRUCTIONS: The patient to be referred to long-term acute care. JOB# [id number]
== END 2018-10-20 16:55 | DRG 871 ==
LOC: ER 03:04 → TELE 08:04
PROVIDERS: ADMIT Internal Medicine; ATTEND Internal Medicine
PROC: 5A1D70Z Performance of Urinary Filtration, Intermittent, Less than 6 Hours Per Day (ICD-10-PCS; principal; 2018-10-19)
DX: A41.9 Sepsis, unspecified organism (principal); J18.9 Pneumonia, unspecified organism; N18.6 End stage renal disease; I13.2 Hypertensive heart and chronic kidney disease with heart failure and with stage 5 chronic kidney disease, or end stage renal disease; N39.0 Urinary tract infection, site not specified; E46 Unspecified protein-calorie malnutrition; G93.40 Encephalopathy, unspecified; E11.22 Type 2 diabetes mellitus with diabetic chronic kidney disease; M19.90 Unspecified osteoarthritis, unspecified site; E78.5 Hyperlipidemia, unspecified; E78.00 Pure hypercholesterolemia, unspecified; R56.9 Unspecified convulsions; I50.9 Heart failure, unspecified; Z68.23 Body mass index [BMI] 23.0-23.9, adult; Z86.73 Personal history of transient ischemic attack (TIA), and cerebral infarction without residual deficits; Z99.2 Dependence on renal dialysis
CPT/HCPCS: 36415-UA; 71045-TC; 80048-TC; 80053-TC; 80202-TC; 81001-TC; 82140-TC; 82607-90; 82746-90; 82948-90; 83605; 83880-TC; 84100-TC; 84443-TC; 85025-TC; 87086-90; 90937; 94760; J2001; J2543; J3370; J3480; J7030; Z7610